=== PATIENT | male | born 1950 | race Caucasian/White ===

== ENCOUNTER 2017-09-23 18:15 | Inpatient (IN) | payer OTHER ==
[~2017-09-23] VITALS: Ht 180.3 cm; Wt 117.2 kg
[~2017-09-23 18:15] MED LIST: ASPIR-TRIN325 M1 PO; BABY ASPIRIN81 M1 PO; BENICAR20 MG PO; CELEBREX200 MG PO; CIPRO500 MG PO; DILAUDID2 MG PO; FEOSOL325 MG PO; MSM PO; NEXIUM40 MG PO; Omega III EPA + DHA PO; PERCOCET 5/31 TABLET PO; RAPAFLO8 MG PO; SENOKOT S,PE1 TABLET PO; TORADOL10 MG PO; VITAMIN D1000 INTUN PO; Vicodin,Lortab 5/500 PO; ZOFRAN4 MG PO
[2017-09-23 19:48] LABS: HEMATOCRIT 50.5 % (38.0-50.0); HEMOGLOBIN 17.3 G/DL (12.5-16.6); MCH 30.1 PG (29.0-34.0); MCHC 34.3 G/DL (30.0-36.0); MCV 87.8 FL (86-99); PLATELET COUNT 198 K/uL (156-360); RBC DIS.WIDTH-CV 13.4 % (11.8-14.6); RBC DIS.WIDTH-SD 43.1 % (39-53); RED BLOOD COUNT 5.75 M/uL (4.00-5.50); WHITE BLOOD COUNT 6.4 K/uL (4.1-10.2)
[2017-09-23 19:57] LABS: CHLORIDE 106 mEq/L (99-109); POTASSIUM 4.3 mEq/L (3.7-5.4); SODIUM 139 mEq/L (136-147)
[2017-09-23 19:59] LABS: GLUCOSE 84 mg/dL (70-99)
[2017-09-23 20:03] LABS: CREATININE 0.8 mg/dL (0.6-1.3); GFR ESTIMATE (CALCULATED) > 59 mL/min/ (58.99-99999); UREA NITROGEN (BUN) 12 mg/dL (9-23)
[2017-09-23] MEDS ORDERED: BENADRYL25 MG PO (22:21)
[2017-09-23] MEDS ORDERED: CLEOCIN300 MG PO (22:21)
[2017-09-24 01:24] VITALS: BP 145/84
[2017-09-24 07:59] VITALS: BP 149/81
[2017-09-24 15:34] VITALS: BP 142/87
[2017-09-24 23:41] VITALS: BP 124/58
[2017-09-25 07:56] VITALS: BP 156/82
[2017-09-25 17:30] VITALS: BP 135/80
[2017-09-25 23:47] VITALS: BP 133/73
[2017-09-26 08:05] VITALS: BP 171/87
[2017-09-26 16:16] VITALS: BP 148/80
[2017-09-27] VITALS: BP 167/82
[2017-09-27 06:12] VITALS: BP 132/76
[2017-09-27 08:02] VITALS: BP 142/84
[2017-09-27] MEDS ORDERED: METHYLPREDNISOLO4 MG PO (12:13)
== END 2017-09-27 12:35 | disposition home or self-care (01) | DRG 603 ==
LOC: EME 18:15 → EDOF 22:54 → 4SOUTH 22:54 → ENRESERV 23:10 → 4SOUTH 09-24 01:02
DX: L03.113 Cellulitis of right upper limb (principal); L27.0 Generalized skin eruption due to drugs and medicaments taken internally; T36.95XA Adverse effect of unspecified systemic antibiotic, initial encounter; S60.861A Insect bite (nonvenomous) of right wrist, initial encounter; W57.XXXA Bitten or stung by nonvenomous insect and other nonvenomous arthropods, initial encounter; I10 Essential (primary) hypertension; Z87.891 Personal history of nicotine dependence; Z86.73 Personal history of transient ischemic attack (TIA), and cerebral infarction without residual deficits
CPT/HCPCS: 73090; 80048; 80202; 83605; 85027; 87040; 87070; 87075; 87205; 99281; 99285; J0690; J1650; J3370; J7509